=== PATIENT | female | born 1950 | race Caucasian/White ===

== ENCOUNTER 2016-05-04 12:39 | Emergency (ER) | payer MEDICARE ==
[2016-05-04 14:54] LABS: HEMOGLOBIN 15.6 gm/dl (12.3-15.3); RED BLOOD COUNT 4.9 M/UL (4.00-5.10); WHITE BLOOD COUNT 5.3 K/UL (4.5-11.0)
[2016-05-04 15:21] LABS: BUN/CREATININE RATIO 13 (0-10)
[2016-09-10] MEDS ORDERED: HYDRALAZINE HCL50 MG PO (05:45)
[2016-09-10] MEDS ORDERED: ALTACE10 MG PO (05:45)
[2016-09-10] MEDS ORDERED: SIMVASTATIN40 MG PO (05:46)
[2016-09-10] MEDS ORDERED: ZETIA10 MG PO (05:46)
[2016-09-10] MEDS ORDERED: COREG 3.125M3.125 MG PO (05:46)
[2016-09-10] MEDS ORDERED: VITAMIN D2000 UNIT PO (05:47)
[2016-09-10] MEDS ORDERED: NEURONTIN 100100 MG PO (05:47)
[2016-09-10] MEDS ORDERED: FOLIC ACID1 MG PO (05:47)
[2016-09-10] MEDS ORDERED: ASPIR 8181 MG PO ×2 (05:47→06:27)
[2016-09-10] MEDS ORDERED: HYGROTON TAB 2525 MG PO ×2 (06:20→06:23)
[2016-09-10] MEDS ORDERED: LISINOPRIL20 MG PO (06:23)
[2016-09-10] MEDS ORDERED: BYSTOLIC10 MG PO (06:24)
[2016-09-10] MEDS ORDERED: ALPRAZOLAM0.5 MG PO (06:25)
[2016-09-10] MEDS ORDERED: SYMBICORT 160-1 INHA INH (06:25)
[2016-09-10] MEDS ORDERED: LORTAB 5-325 M1 EACH PO (06:26)
[2016-09-11] MEDS ORDERED: LISINOPRIL20 MG PO (10:47)
== END 2016-05-05 02:40 | disposition short-term general hospital (02) ==
LOC: ER1 12:39
PROVIDERS: Student in an Organized Health Care Education/Training Program
DX: I71.2 Thoracic aortic aneurysm, without rupture (principal); I16.0 Hypertensive urgency; J44.9 Chronic obstructive pulmonary disease, unspecified; I10 Essential (primary) hypertension; F17.210 Nicotine dependence, cigarettes, uncomplicated; Z88.8 Allergy status to other drugs, medicaments and biological substances; Z90.49 Acquired absence of other specified parts of digestive tract; Z79.899 Other long term (current) drug therapy
CPT/HCPCS: 36415; 71020; 80053; 81001; 82550; 82553; 83690; 83874; 84484; 85025; 85379; 85610; 85730; 87086; 93005; 96365; 96375; 96376; 99291; J2270; J2550; J7030; J7050; Q9963

== ENCOUNTER 2016-05-10 20:32 | Emergency (ER) | payer MEDICARE ==
[2016-05-10 21:41] LABS: HEMOGLOBIN 16.2 gm/dl (12.3-15.3); RED BLOOD COUNT 4.98 M/UL (4.00-5.10); WHITE BLOOD COUNT 6.9 K/UL (4.5-11.0)
[2016-05-10 22:09] LABS: BUN/CREATININE RATIO 9 (0-10)
[2016-09-10] MEDS ORDERED: ALTACE10 MG PO (05:45)
[2016-09-10] MEDS ORDERED: HYDRALAZINE HCL50 MG PO (05:45)
[2016-09-10] MEDS ORDERED: COREG 3.125M3.125 MG PO (05:46)
[2016-09-10] MEDS ORDERED: SIMVASTATIN40 MG PO (05:46)
[2016-09-10] MEDS ORDERED: ZETIA10 MG PO (05:46)
[2016-09-10] MEDS ORDERED: VITAMIN D2000 UNIT PO (05:47)
[2016-09-10] MEDS ORDERED: ASPIR 8181 MG PO ×2 (05:47→06:27)
[2016-09-10] MEDS ORDERED: NEURONTIN 100100 MG PO (05:47)
[2016-09-10] MEDS ORDERED: FOLIC ACID1 MG PO (05:47)
[2016-09-10] MEDS ORDERED: HYGROTON TAB 2525 MG PO ×2 (06:20→06:23)
[2016-09-10] MEDS ORDERED: LISINOPRIL20 MG PO (06:23)
[2016-09-10] MEDS ORDERED: BYSTOLIC10 MG PO (06:24)
[2016-09-10] MEDS ORDERED: SYMBICORT 160-1 INHA INH (06:25)
[2016-09-10] MEDS ORDERED: ALPRAZOLAM0.5 MG PO (06:25)
[2016-09-10] MEDS ORDERED: LORTAB 5-325 M1 EACH PO (06:26)
[2016-09-11] MEDS ORDERED: LISINOPRIL20 MG PO (10:47)
== END 2016-05-10 22:18 | disposition short-term general hospital (02) ==
LOC: ER1 20:32
PROVIDERS: Emergency Medicine
DX: R10.9 Unspecified abdominal pain (principal); J44.9 Chronic obstructive pulmonary disease, unspecified
CPT/HCPCS: 36415; 80053; 82550; 82553; 83605; 83690; 83874; 84484; 85025; 85610; 85730; 87040; 96374; 99285; J2270

== ENCOUNTER 2020-12-14 15:04 | Emergency (ER) | payer MEDICARE ==
[~2020-12-14 15:04] MED LIST: ALPRAZOLAM0.5 MG PO; ALTACE10 MG PO; ASPIR 8181 MG PO; BYSTOLIC10 MG PO; COREG 3.125M3.125 MG PO; FOLIC ACID1 MG PO; HYDRALAZINE HCL50 MG PO; HYGROTON TAB 2525 MG PO; LISINOPRIL20 MG PO; LORTAB 5-325 M1 EACH PO; NEURONTIN 100100 MG PO; SIMVASTATIN40 MG PO; SYMBICORT 160-1 INHA INH; TESSALON PERLE100 MG PO; VITAMIN D2000 UNIT PO; ZETIA10 MG PO
== END 2020-12-14 18:19 | disposition home or self-care (01) ==
LOC: ER1 15:04
DX: G89.29 Other chronic pain (principal); M54.9 Dorsalgia, unspecified; G62.9 Polyneuropathy, unspecified; I10 Essential (primary) hypertension; Z90.49 Acquired absence of other specified parts of digestive tract; Z90.710 Acquired absence of both cervix and uterus; F17.200 Nicotine dependence, unspecified, uncomplicated; Z90.89 Acquired absence of other organs
CPT/HCPCS: 99283